=== PATIENT | female | born 1980 | race African-American/Black ===

== ENCOUNTER 2024-05-13 21:04 | Emergency (ER) | payer SELFPAY ==
[~2024-05-13] VITALS: Ht 165.1 cm; Wt 97.0 kg
[2024-05-13 21:55] VITALS: TEMP 98.6; O2SAT 100
[2024-05-13 23:31] LABS: BASOPHILS % 0.7 % (0.0-2.0); EOSINOPHILS % 1.2 % (0.0-5.0); HEMATOCRIT. 42.4 % (36.0-48.0); HEMOGLOBIN. 14.3 g/dL (12.0-16.0); LYMPHOCYTES % 28.8 % (20.0-50.0); MEAN CORPUSCULAR HEMOGLOBIN 28.3 pg (28.0-32.0); MEAN CORPUSCULAR HGB CONC 33.7 g/dL (31.0-37.0); MEAN CORPUSCULAR VOLUME 83.8 fL (81.0-99.0); MEAN PLATELET VOLUME 8.9 fl (7.4-10.4); MONOCYTES % 6.3 % (2.0-8.0); PLATELET 302 x1000/uL (130-400); RED BLOOD CELL COUNT 5.06 mill/uL (4.2-5.4); WHITE BLOOD COUNT 8.5 x1000/uL (4.5-11.0)
[2024-05-13 23:35] LABS: CHLORIDE 100 mEq/L (98-107); SODIUM 138 mEq/L (136-145)
[2024-05-13 23:36] LABS: CALCIUM 9.8 mg/dL (8.7-10.4); CARBON DIOXIDE 31 mEq/L (21-32)
[2024-05-13 23:41] LABS: CREATININE 0.9 mg/dL (0.6-1.0); GLUCOSE 88 mg/dL (70-105); UREA NITROGEN BLOOD 9 mg/dL (9-23)
[2024-05-14] MEDS ORDERED: IBUP-2029 MT (00:25)
[2024-05-14] MEDS: IBUPROFEN 600MG TABLET PO ONE (00:38)
[2024-05-14] MEDS: POTASSIUM CHLORIDE 20MEQ/PACKET PO ONE (00:44)
[2024-05-14 00:52] VITALS: BP 131/78; PULSE 88; RESP 14
== END 2024-05-14 00:53 | disposition home or self-care (01) ==
LOC: ER 21:04
DX: M79.662 Pain in left lower leg (principal); I10 Essential (primary) hypertension; I82.499 Acute embolism and thrombosis of other specified deep vein of unspecified lower extremity; Z90.49 Acquired absence of other specified parts of digestive tract
CPT/HCPCS: 36415; 73590; 80048; 85025; 93005; 93971; 99285

== ENCOUNTER 2024-09-30 12:48 | Emergency (ER) | payer OTHER ==
[~2024-09-30] VITALS: Ht 165.1 cm; Wt 76.0 kg
[~2024-09-30 12:48] MED LIST: IBUP-2029 MT
[2024-09-30 13:04] VITALS: BP 129/85; PULSE 74; RESP 16; TEMP 98.3; O2SAT 99
[2024-09-30] MEDS ORDERED: PRED10TA23 MT (14:36)
== END 2024-09-30 15:22 | disposition home or self-care (01) ==
LOC: ER 13:17
DX: R05.9 Cough, unspecified (principal); I10 Essential (primary) hypertension; Z90.49 Acquired absence of other specified parts of digestive tract; Z20.822 Contact with and (suspected) exposure to COVID-19; Z86.718 Personal history of other venous thrombosis and embolism
CPT/HCPCS: 99283; 87426; Z7610

== ENCOUNTER 2024-11-09 06:04 | Emergency (ER) | payer OTHER ==
[~2024-11-09] VITALS: Ht 162.6 cm; Wt 78.0 kg
[~2024-11-09 06:04] MED LIST changes: +PRED10TA23 MT
[2024-11-09] MEDS: DIPHENHYDRAMINE 50MG/ML VIAL IM ONE (06:19)
[2024-11-09] MEDS: HALOPERIDOL LACTATE 5MG/ML VIAL IM STA (06:19)
[2024-11-09] MEDS: LORAZEPAM 2MG/ML INJ IM STA (06:19)
[2024-11-09] MEDS: MIDAZOLAM HCL 2 MG/2 ML VIAL IM ONE (06:45)
[2024-11-09] MEDS: OLANZAPINE 10 MG/VIAL IM ONE (07:12)
[2024-11-09 07:32] LABS: BASOPHILS % 0.3 % (0.0-2.0); EOSINOPHILS % 0.1 % (0.0-5.0); HEMATOCRIT. 48.6 % (36.0-48.0); HEMOGLOBIN. 16.2 g/dL (12.0-16.0); LYMPHOCYTES % 7.3 % (20.0-50.0); MEAN CORPUSCULAR HEMOGLOBIN 28.3 pg (28.0-32.0); MEAN CORPUSCULAR HGB CONC 33.2 g/dL (31.0-37.0); MEAN CORPUSCULAR VOLUME 85.3 fL (81.0-99.0); MEAN PLATELET VOLUME 8.9 fl (7.4-10.4); MONOCYTES % 4.6 % (2.0-8.0); NEUTROPHILS % 87.7 % (40.0-76.0); PLATELET 314 x1000/uL (130-400); WHITE BLOOD COUNT 11.9 x1000/uL (4.5-11.0)
[2024-11-09 07:38] LABS: CARBON DIOXIDE 24 mEq/L (21-32); CHLORIDE 96 mEq/L (98-107); SODIUM 135 mEq/L (136-145)
[2024-11-09 07:39] LABS: CALCIUM 10.3 mg/dL (8.7-10.4)
[2024-11-09 07:44] LABS: CREATININE 1.2 mg/dL (0.6-1.0); GLUCOSE 105 mg/dL (70-105); UREA NITROGEN BLOOD 14 mg/dL (9-23)
[2024-11-09 07:48] LABS: ETHANOL BLOOD < 10 mg/dL (<10); POTASSIUM 2.2 mEq/L (3.5-5.1)
[2024-11-09 08:00] VITALS: O2SAT 98
[2024-11-09] MEDS ORDERED: KCL 20MEQ/100ML PREMIX 100 ML IV SCH (08:15)
[2024-11-09] MEDS: KCL 20MEQ/100ML PREMIX 100 ML IV SCH (14:04)
[2024-11-09 14:21] LABS: CLARITY URINE CLOUDY (CLEAR); COLOR URINE DARK YELLOW (YELLOW); GLUCOSE URINE NEGATIVE (NEGATIVE); KETONES URINE 4+ (NEGATIVE); LEUKOCYTE ESTERASE URINE NEGATIVE (NEGATIVE); NITRITE URINE NEGATIVE (NEGATIVE); OCCULT BLOOD URINE TRACE (NEGATIVE); PH URINE 5.5 (4.5-8.0); PROTEIN URINE 2+ (NEGATIVE); SPECIFIC GRAVITY URINE 1.026 (1.005-1.030)
[2024-11-09 14:31] LABS: *AMPHETAMINES SCREEN URINE NEGATIVE (NEGATIVE); *BARBITURATES SCREEN URINE NEGATIVE (NEGATIVE); *BENZODIAZEPINES SCREEN URINE NEGATIVE (NEGATIVE); *COCAINE SCREEN URINE NEGATIVE (NEGATIVE); CANNABINOID URINE SCREEN PRESUMPTIVE POSITIVE (NEGATIVE); METHADONE URINE SCREEN NEGATIVE (NEGATIVE); OPIATES URINE SCREEN NEGATIVE (NEGATIVE); PHENCYCLIDINE URINE SCREEN NEGATIVE (NEGATIVE)
[2024-11-09 14:32] LABS: ECSTASY MDMA SCREEN URINE NEGATIVE (NEGATIVE)
[2024-11-09 15:03] LABS: BACTERIA URINE 3+; SQUAMOUS EPITHELIAL CELL URINE FEW /lpf (RARE/1+)
[2024-11-09 15:04] LABS: RBC URINE 0-2 /hpf (0-2)
[2024-11-09] MEDS: OLANZAPINE 5MG TABLET ODT PO SCH (21:00)
[2024-11-10 00:59] LABS: POTASSIUM 3.1 mEq/L (3.5-5.1)
[2024-11-10 01:08] LABS: ACETAMINOPHEN < 2 ug/mL (10-30)
[2024-11-10] MEDS: POTASSIUM CHLORIDE 20MEQ TABLET SR PO NR (02:28)
[2024-11-10 02:46] LABS: HCG SCREEN NEGATIVE
[2024-11-10 09:12] VITALS: BP 128/82; PULSE 117; RESP 18; TEMP 36.72516; O2SAT 98
== END 2024-11-10 09:28 ==
LOC: ER 06:04
DX: R45.851 Suicidal ideations (principal); R00.0 Tachycardia, unspecified; I10 Essential (primary) hypertension; Z90.49 Acquired absence of other specified parts of digestive tract; Z86.718 Personal history of other venous thrombosis and embolism; Z20.822 Contact with and (suspected) exposure to COVID-19
CPT/HCPCS: 80305; 80048; 81003; 80320; 85025; 36415 ×2; 93005; 96365; 96372; 99291; 87426; 80307; 80329; 84703; 84132; J3490; J1200; J1630; J2060; J3480; A4663; Z7610 ×3; 96374; A4606; J2250; G0480